=== PATIENT | male | born 2000 | race Caucasian/White ===

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

== ENCOUNTER 2018-03-27 00:23 | Emergency (ER) ==
[2018-03-27 00:30] VITALS: BP 157/87; TEMP 98.5; BMI 40.6
--- NOTE | 2018-03-27 00:45 | ED.PDOC ---
General ED Provider: Dr. CARINA ADRIAN-ER Chief Complaint: Finger Pain/Injury Stated Complaint: my fingernail is swollen Time Seen by Physician: 00:43 Mode of Arrival: Walk-In Information Source: Patient Exam Limitations: No limitations Primary Care Provider: JAMES PIERSON Nursing and Triage Documentation Reviewed and Agree: Yes Does patient meet sepsis criteria?: No System Inflammatory Response Syndrome: Not Applicable Sepsis Protocol: For patient's 13 years and over: Temp is 96.8 and below OR 101 and greater Pulse >90 BPM Resp >20/minute Acutely Altered Mental Status Are patient's symptoms suggestive of a new infection, such as: -Pneumonia -Skin, Soft Tissue -Endocarditis -UTI -Bone, Joint Infection -Implantable Device -Acute Abdominal Infection -Wound Infection -Meningitis -Blood Stream Catheter Infection -Unknown Skin Complaint Exam - Skin/Soft Tissue Complaint/Exam Onset/Duration: 2 days Symptoms Are: Still present Timing: Constant Initial Severity: Mild Current Severity: Mild Location: right middle fingernail Character: Reports: Redness, Swelling, Raised Aggravating: Reports: Touch Associated Signs and Symptoms: Reports: Tenderness Recent Exposure to Others w/Similar Symptoms: No Skin Findings: Present: Erythema, Induration Joint Tenderness Present: No Differential Diagnoses: Abscess, Other (paronychia) Review of Systems - Review Of Systems Constitutional: Reports: No symptoms Eyes: Reports: No symptoms Ears, Nose, Mouth, Throat: Reports: No symptoms Respiratory: Reports: No symptoms Cardiac: Reports: Lightheadedness GI: Reports: No symptoms : Reports: No symptoms Musculoskeletal: Reports: No symptoms Skin: Reports: No symptoms, Lumps Neurological: Reports: No symptoms Endocrine: Reports: No symptoms Hematologic/Lymphatic: Reports: No symptoms All Other Systems: Reviewed and Negative Past Medical History - Past Medical History Previously Healthy: Yes Endocrine: Reports: None Cardiovascular: Reports: None Respiratory: Reports: None Hematological: Reports: None Gastrointestinal: Reports: None Genitourinary: Reports: None Neuro/Psych: Reports: None Musculoskeletal: Reports: None Cancer: Reports: None - Surgical History General Surgical History: Reports: None - Family History Family History: Reports: None - Social History Smoking Status: Current every day smoker, Light tobacco smoker Hx Substance Use: No Alcohol Screening: None - Immunizations Tetanus Shot up to Date: Yes Influenza Vaccine within 12 Months: No Physical Exam - Physical Exam Appearance: Well-appearing Pain Distress: Mild Eyes: AMAYA ENT: Ears normal, Nose normal, Oropharynx normal Neck: Supple Respiratory: Airway patent, Breath sounds clear, Breath sounds equal, Respirations nonlabored Cardiovascular: RRR, Pulses normal, No rub, No murmur GI/: Soft, Nontender, No masses, Bowel sounds normal, No Organomegaly Musculoskeletal: Normal strength, ROM intact, No edema, No calf tenderness Skin: Warm, Dry, Normal color Neurological: Sensation intact Psychiatric: Affect appropriate, Mood appropriate Critical Care Note - Critical Care Note Total Time (mins): 0 Course - Course Vital Signs: Temp Pulse Resp BP Pulse Ox 03/27/18 00:26 98.5 F 105 H 20 157/87 H 97 Departure - Departure Time of Disposition: 00:45 Disposition: HOME SELF-CARE Discharge Problem: Paronychia Instructions: Paronychia (ED) Condition: Good Pt referred to PMD for follow-up: No IPMP verified?: No Additional Instructions: clindamycin 300mg qid x 7 days---salt water soaks--redheck in 48hrs if not improved Allergies/Adverse Reactions: Allergies No Known Allergies Allergy (Verified 03/27/18 00:34) Home Medications: Ambulatory Orders 1 [No Reported Medications] 09/15/17 Disposition Discussed With: Patient
== END 2018-03-27 00:50 | disposition home or self-care (01) ==
LOC: ED 00:23
DX: L03.011 Cellulitis of right finger (principal); F17.210 Nicotine dependence, cigarettes, uncomplicated
CPT/HCPCS: 99282

== ENCOUNTER 2018-05-12 21:12 | Emergency (ER) ==
[2018-05-12 21:21] VITALS: BP 153/84; TEMP 99.6; BMI 43.9
--- NOTE | 2018-05-12 21:29 | ED.PDOC ---
General ED Provider: Dr. CARINA ADRIAN-ER Chief Complaint: Wrist Pain/Injury Stated Complaint: i hurt my wrist Time Seen by Physician: 21:15 Mode of Arrival: Walk-In Information Source: Patient Exam Limitations: No limitations Primary Care Provider: JAMES PIERSON Nursing and Triage Documentation Reviewed and Agree: Yes Does patient meet sepsis criteria?: No System Inflammatory Response Syndrome: Not Applicable Sepsis Protocol: For patient's 13 years and over: Temp is 96.8 and below OR 101 and greater Pulse >90 BPM Resp >20/minute Acutely Altered Mental Status Are patient's symptoms suggestive of a new infection, such as: -Pneumonia -Skin, Soft Tissue -Endocarditis -UTI -Bone, Joint Infection -Implantable Device -Acute Abdominal Infection -Wound Infection -Meningitis -Blood Stream Catheter Infection -Unknown Trauma/Injury Complaint Exam - Trauma Complaint/Exam Location of Pain or Injury: Reports: LUE Mechanism of Injury: Reports: Fall Symptoms Are: Still present Timing of Treatment: Immediate Initial Severity: Mild Current Severity: Mild Aggravating: Reports: Movement, Palpation Associated Signs and Symptoms: Reports: Extremity disuse Penetrating Injury Risk Factors: Reports: None Immobilization Removed Post Exam: No Compartment Syndrome Risk Factors: Present: Pain Review of Systems - Review Of Systems Constitutional: Reports: No symptoms Eyes: Reports: No symptoms Ears, Nose, Mouth, Throat: Reports: No symptoms Respiratory: Reports: No symptoms Cardiac: Reports: No symptoms GI: Reports: No symptoms : Reports: No symptoms Musculoskeletal: Reports: Joint pain, Muscle pain Skin: Reports: No symptoms Neurological: Reports: No symptoms Endocrine: Reports: No symptoms Hematologic/Lymphatic: Reports: No symptoms All Other Systems: Reviewed and Negative Past Medical History - Past Medical History Previously Healthy: Yes Endocrine: Reports: None Cardiovascular: Reports: None Respiratory: Reports: None Hematological: Reports: None Gastrointestinal: Reports: None Genitourinary: Reports: None Neuro/Psych: Reports: None Musculoskeletal: Reports: None Cancer: Reports: None - Surgical History General Surgical History: Reports: None - Family History Family History: Reports: None - Social History Smoking Status: Current every day smoker, Light tobacco smoker Hx Substance Use: No Alcohol Screening: None - Immunizations Tetanus Shot up to Date: Yes Influenza Vaccine within 12 Months: No Physical Exam - Physical Exam Appearance: Well-appearing, No pain distress, Well-nourished Pain Distress: Mild Eyes: AMAYA, EOMI, Conjunctiva clear ENT: Ears normal, Nose normal, Oropharynx normal Neck: Supple Respiratory: Airway patent, Breath sounds clear, Breath sounds equal, Respirations nonlabored Cardiovascular: RRR, Pulses normal, No rub, No murmur GI/: Soft Musculoskeletal: Limited ROM Skin: Warm, Dry, Normal color Neurological: Sensation intact, Motor intact, Reflexes intact, Cranial nerves intact, Alert, Oriented Psychiatric: Affect appropriate, Mood appropriate Interpretation - Radiology Interpretation Radiology Interpretation By: Radiologist Radiology Results: Negative Critical Care Note - Critical Care Note Total Time (mins): 0 Course - Course Orders, Labs, Meds: Orders Category Date Time Status Splint [ED SPLINT APPLICATION] .ONCE EMERGENCY 05/12/18 21:57 Active Ibuprofen [Motrin] MEDS 05/12/18 21:57 Stat 600 mg PO ONCE STA HAND, LEFT 3 VIEWS Stat RADS 05/12/18 21:22 Completed WRIST, LEFT 3 VIEWS Stat RADS 05/12/18 21:22 Completed Vital Signs: Temp Pulse Resp BP Pulse Ox 05/12/18 21:13 99.6 F 119 H 20 153/84 H 97 Departure - Departure Time of Disposition: 21:58 Disposition: HOME SELF-CARE Discharge Problem: Injury of wrist Instructions: Wrist Injury (ED) Condition: Good Pt referred to PMD for follow-up: Yes IPMP verified?: No Additional Instructions: stay in splint---ice and elevation---toradol 10mg qid prn pain #16---f/u with pcp if not improving next week Allergies/Adverse Reactions: Allergies No Known Allergies Allergy (Verified 05/12/18 21:20) Home Medications: Ambulatory Orders 1 [No Reported Medications] 09/15/17 Disposition Discussed With: Patient
--- NOTE | 2018-05-12 21:53 | DI ---
EXAM: Three views of the left wrist HISTORY: Fall fifth metacarpal pain TECHNIQUE: AP lateral, oblique views of the left wrist were obtained. FINDINGS: The distal radius and ulna appear intact. There is a normal alignment of the carpal bones . The soft tissues are normal. IMPRESSION: No acute fracture dislocation seen within the left wrist.
--- NOTE | 2018-05-12 21:55 | DI ---
EXAM: Three views of the left hand HISTORY: Patient fell TECHNIQUE: AP lateral, oblique views of the left hand were obtained. FINDINGS: No acute fractures are seen. There is anatomic alignment. The soft tissues are normal. IMPRESSION: No acute fracture dislocation seen within the left hand.
[2018-05-12] MEDS ORDERED: MOTRIN PO STA (21:57)
== END 2018-05-12 22:30 | disposition home or self-care (01) ==
LOC: ED 21:12
DX: S69.92XA Unspecified injury of left wrist, hand and finger(s), initial encounter (principal); W00.0XXA Fall on same level due to ice and snow, initial encounter; F17.210 Nicotine dependence, cigarettes, uncomplicated
CPT/HCPCS: 99283